=== PATIENT | female | born 1945 | race Two or more races ===

== ENCOUNTER 2017-09-19 21:23 | Emergency (ER) | payer OTHER ==
[~2017-09-19] VITALS: Ht 157.5 cm; Wt 76.2 kg
[2017-09-19] MEDS ORDERED: SIMVASTATIN (21:39)
[2017-09-19] MEDS ORDERED: ATENOLOL (21:39)
[2017-09-19] MEDS ORDERED: COUMADIN3 MG (21:40)
[2017-09-20] MEDS ORDERED: Xopenex 1.25 MG/3 ML IH (08:05)
[2017-09-20] MEDS ORDERED: IPRATROPIU0.2 MG/1 M IH (08:05)
== END 2017-09-20 12:30 | disposition home or self-care (01) ==
LOC: ER 21:23
DX: J45.901 Unspecified asthma with (acute) exacerbation (principal)

== ENCOUNTER → 2018-01-08 16:03 | Outpatient (CLI) | payer OTHER ==
[~2018-01-08 16:03] MED LIST: ATENOLOL; COUMADIN3 MG; IPRATROPIU0.2 MG/1 M IH; SIMVASTATIN; Xopenex 1.25 MG/3 ML IH
== END | disposition home or self-care (01) ==
LOC: LAB 16:03
DX: I11.9 Hypertensive heart disease without heart failure (principal); E78.2 Mixed hyperlipidemia; E03.8 Other specified hypothyroidism; E83.51 Hypocalcemia; E55.9 Vitamin D deficiency, unspecified